=== PATIENT | female | born 1970 | race Caucasian/White ===

== ENCOUNTER → 2016-10-02 | Outpatient (CLI) | payer OTHER ==
[~2016-10-02] MED LIST: ADVIL200 MG PO; ASPIRIN 81M81 MG/TA2 PO; CHANTIX 1MG1 MG PO; DOXYCYCLINE 10100 MG PO; EFFEXOR 75M75 MG/TAB PO; EFFEXOR-XR150 MG PO; FLOVENT DI100 MCG/Ac IH; INDERAL 20MG20 MG PO; LIPITOR20 MG PO; LOPRESSOR 225 MG/TAB PO; MULTI VITAMINS1 TAB PO; NITROSTAT0.4 MG/TAB SL; PEPCID40 MG PO; PLAVIX 75MG TAB75 MG PO; PROTONIX 40MG T40 MG PO; TAZTIA120 PO
== END ==
LOC: MC.RAD 07:00
DX: Z12.31 Encounter for screening mammogram for malignant neoplasm of breast (principal)

== ENCOUNTER 2016-10-26 16:53 | Observation (INO) | payer OTHER ==
[~2016-10-26] VITALS: Ht 160 cm; Wt 82.8 kg
[~2016-10-26 16:53] MED LIST changes: -ADVIL200 MG PO; -ASPIRIN 81M81 MG/TA2 PO; -INDERAL 20MG20 MG PO; -NITROSTAT0.4 MG/TAB SL; -TAZTIA120 PO
[2016-10-26] MEDS ORDERED: TAZTIA120 PO (17:18)
[2016-10-26] MEDS ORDERED: INDERAL 20MG20 MG PO (17:18)
[2016-10-26] MEDS ORDERED: ASPIRIN 81M81 MG/TA2 PO (17:19)
[2016-10-26 17:28] LABS: BASO % 0.3 % (0.0-2.0); EOS # 0.1 (0.0-0.7); EOS % 1.4 % (0-4.0); GRAN # 5.9 (1.4-6.5); GRAN % 60.8 % (42.2-75.2); HEMATOCRIT 43.9 % (37.0-47.0); HEMOGLOBIN 15.3 g/dl (12.5-16.0); LYMPH # 2.9 (1.2-3.4); LYMPH % 30.2 % (20.0-51.0); MEAN CELL VOLUME 90 fl (80.0-100.0); MEAN CORPUSCULAR HEMOGLOBIN 31 pg (27.0-31.0); MEAN CORPUSCULAR HGB CONC 35 g/dl (33.0-37.0); MEAN PLATELET VOLUME 9.7 fl (7.4-10.4); MONO # 0.7 (0.1-0.6); PLATELET COUNT 239 K/mm3 (130-400); RED BLOOD COUNT 4.87 M/mm3 (4.10-5.30); REDCELL DISTRIBUTION WIDTH-CV 11.9 % (11.5-14.5); WHITE BLOOD COUNT 9.7 K/mm3 (4.8-10.8)
[2016-10-26 17:33] LABS: PROTHROMBIN TIME 11.2 SECONDS (9.7-12.8)
[2016-10-26 17:36] LABS: PARTIAL THROMBOPLASTIN TIME 33.4 SECONDS (26.0-37.0)
[2016-10-26 17:39] LABS: ADJUSTED CALCIUM 8.4 mg/dL (8.4-10.2); ALANINE AMINOTRANSFERASE 21 U/L (9-52); ALBUMIN 4.3 gm/dL (3.5-5.0); ALKALINE PHOSPHATASE 101 U/L (50-136); ANION GAP 11 mmol/L (7-16); BILIRUBIN,TOTAL 0.6 mg/dL (0.0-1.0); BLOOD UREA NITROGEN 10 mg/dL (7-17); CALCIUM 8.6 mg/dL (8.4-10.2); CARBON DIOXIDE 22 mmol/L (22-30); CHLORIDE 104 mmol/L (98-107); CREATININE, serum 0.63 mg/dL (0.52-1.25); GLUCOSE 99 mg/dL (74-106); LIPASE 120 U/L (23-300); POTASSIUM 3.5 mmol/L (3.4-5.0); SODIUM 137 mmol/L (137-145)
[2016-10-26 17:51] LABS: B-TYPE NATRIURETIC PEPTIDE 40 pg/mL (0-125)
[2016-10-26 17:52] LABS: TROPONIN-I < 0.012 ng/mL (0.000-0.034)
[2016-10-26 20:29] VITALS: BP 113/65; PULSE 76; TEMP 98
[2016-10-26 23:01] VITALS: BP 107/50; PULSE 63; TEMP 98.4
[2016-10-27] VITALS (13 sets, daily range): BP systolic 91–111; BP diastolic 45–64; PULSE 61–97; TEMP 97.8–98.5
[2016-10-27 10:01] LABS: HEMATOCRIT 43.5 % (37.0-47.0); HEMOGLOBIN 14.8 g/dl (12.5-16.0); MEAN CELL VOLUME 91 fl (80.0-100.0); MEAN CORPUSCULAR HEMOGLOBIN 31 pg (27.0-31.0); MEAN CORPUSCULAR HGB CONC 34 g/dl (33.0-37.0); MEAN PLATELET VOLUME 10.2 fl (7.4-10.4); PLATELET COUNT 224 K/mm3 (130-400); RED BLOOD COUNT 4.76 M/mm3 (4.10-5.30); WHITE BLOOD COUNT 7.7 K/mm3 (4.8-10.8)
[2016-10-27 10:02] LABS: INR 1.2 (0.8-3.0); PROTHROMBIN TIME 12.8 SECONDS (9.7-12.8)
[2016-10-27 10:14] LABS: CALCIUM 8.5 mg/dL (8.4-10.2); CREATININE, serum 0.68 mg/dL (0.52-1.25); POTASSIUM 3.6 mmol/L (3.4-5.0)
[2016-10-27] MEDS ORDERED: NITROSTAT0.4 MG/TAB SL (17:37)
[2016-10-27] MEDS ORDERED: PLAVIX 75MG TAB75 MG PO (18:29)
== END 2016-10-27 18:45 | disposition home or self-care (01) ==
LOC: COL.ER 16:53 → MEDICAL 18:09
PROVIDERS: Emergency Medicine; Internal Medicine Interventional Cardiology
DX: R07.89 Other chest pain (principal); E78.5 Hyperlipidemia, unspecified; K21.9 Gastro-esophageal reflux disease without esophagitis; F17.210 Nicotine dependence, cigarettes, uncomplicated; R00.2 Palpitations; R42 Dizziness and giddiness
CPT/HCPCS: C1760; G0378; J1650; J2250; J3010; Q9967

== ENCOUNTER 2016-11-13 14:29 | Outpatient (CLI) | payer OTHER ==
[~2016-11-13] VITALS: Ht 160 cm; Wt 81.8 kg
[~2016-11-13 14:29] MED LIST changes: +ASPIRIN 81M81 MG/TA2 PO; +INDERAL 20MG20 MG PO; +NITROSTAT0.4 MG/TAB SL; +TAZTIA120 PO
[2016-11-13 15:07] VITALS: BP 115/64; PULSE 87; TEMP 98.6
[2016-11-13] MEDS ORDERED: ADVIL200 MG PO (15:07)
== END 2016-11-13 17:08 | disposition home or self-care (01) ==
LOC: COL.CAR 14:29
DX: R00.2 Palpitations (principal); I45.19 Other right bundle-branch block; F17.210 Nicotine dependence, cigarettes, uncomplicated; Z82.49 Family history of ischemic heart disease and other diseases of the circulatory system; Z81.8 Family history of other mental and behavioral disorders; Z82.3 Family history of stroke
CPT/HCPCS: C1764

== ENCOUNTER → 2017-04-14 | Outpatient (CLI) | payer OTHER ==
[~2017-04-14] MED LIST changes: +ADVIL200 MG PO
[2017-04-14 15:18] LABS: ANION GAP 10 mmol/L (7-16); BLOOD UREA NITROGEN 10 mg/dL (7-17); CALCIUM 9.2 mg/dL (8.4-10.2); CARBON DIOXIDE 27 mmol/L (22-30); CHLORIDE 103 mmol/L (98-107); CREATININE, serum 0.68 mg/dL (0.52-1.25); GLUCOSE 130 mg/dL (74-106); POTASSIUM 3.6 mmol/L (3.4-5.0); SODIUM 139 mmol/L (137-145)
[2017-04-14 15:31] LABS: TROPONIN-I < 0.012 ng/mL (0.000-0.034)
[2017-04-14 15:48] LABS: HEMATOCRIT 45.8 % (37.0-47.0); HEMOGLOBIN 15.7 g/dl (12.5-16.0); MEAN CELL VOLUME 93 fl (80.0-100.0); MEAN CORPUSCULAR HEMOGLOBIN 32 pg (27.0-31.0); MEAN CORPUSCULAR HGB CONC 34 g/dl (33.0-37.0); MEAN PLATELET VOLUME 9.8 fl (7.4-10.4); PLATELET COUNT 261 K/mm3 (130-400); RED BLOOD COUNT 4.94 M/mm3 (4.10-5.30); WHITE BLOOD COUNT 8.5 K/mm3 (4.8-10.8)
== END ==
LOC: COL.RAD 14:48
PROVIDERS: Internal Medicine Interventional Cardiology
DX: R07.89 Other chest pain (principal)
CPT/HCPCS: Q9967

== ENCOUNTER → 2017-09-07 | Outpatient (CLI) | payer OTHER | LOC: COL.RAD 07:52 | DX: N92.0 Excessive and frequent menstruation with regular cycle (principal) ==